=== PATIENT | female | born 2000 | race Caucasian/White ===

== ENCOUNTER 2021-05-08 10:41 | Inpatient (IN) | payer OTHER ==
[2021-05-08] MEDS ORDERED: NICOTINE 10 MG CARTRIDGE (INHALER) IH PRN (11:30)
[2021-05-08] MEDS ORDERED: IBUPROFEN 400 MG TABLET (FP) PO PRN (11:30)
[2021-05-08] MEDS ORDERED: diazePAM 5 MG TABLET PO PRN (11:30)
[2021-05-08] MEDS ORDERED: ONDANSETRON *ODT* 4 MG TABLET SL PRN (11:30)
[2021-05-08] MEDS ORDERED: MAG HYDROX/AL HYDROX/SIMETH 30 ML UNIT-DOSE CUP PO PRN (11:30)
[2021-05-08] MEDS ORDERED: MAGNESIUM HYDROX 2400MG/30ML ORAL SUSPENSION 30 ML CUP PO PRN (11:30)
[2021-05-08] MEDS ORDERED: ACETAMINOPHEN 325 MG TABLET (FP) PO PRN ×2 (11:30)
[2021-05-08] MEDS ORDERED: MAGNESIUM CITRATE 300 ML BOTTLE PO PRN (11:30)
[2021-05-08] MEDS ORDERED: MENTHOL/PHENOL 1 EACH UD MM PRN (11:30)
[2021-05-08] MEDS ORDERED: BUPRENORPHINE HCL 150 MCG, BUPRENORPHINE HCL 75 MCG BC ONE (11:30)
[2021-05-08] MEDS ORDERED: BISMUTH SUBSALICYLATE 524 MG/30 ML PO PRN (11:30)
[2021-05-08 11:51] VITALS: BMI 24.2
[2021-05-08] MEDS ORDERED: BUPRENORPHINE HCL 150 MCG FILM BC ONE (11:55)
[2021-05-08] MEDS ORDERED: BUPRENORPHINE HCL 75 MCG FILM BC ONE (11:55)
[2021-05-08] MEDS: diazePAM 5 MG TABLET PO SCH ×3 (12:00→22:20)
[2021-05-08] MEDS ORDERED: cloNIDine HCL 0.1 MG TABLET PO ONE (12:45)
[2021-05-08] MEDS: PRENATAL VITAMINS W/ FOLIC ACID TABLET (FP) PO SCH (12:59)
[2021-05-08] MEDS: hydrOXYzine PAMOATE 25 MG CAPSULE (FP) PO SCH ×3 (13:01→22:18)
[2021-05-08] MEDS: METHOCARBAMOL 500 MG TABLET PO PRN (13:01)
[2021-05-08] MEDS: NICOTINE 7 MG/24 HOURS TOPICAL PATCH TD SCH (13:08)
[2021-05-08 15:20] LABS: HEMATOCRIT 36.9 % (32.4-45.2); HEMOGLOBIN 12.5 GM/dL (10.7-15.3); MCH 28.2 pg (25.7-33.7); MCHC 33.9 g/dl (32.0-36.0); MEAN CELL VOLUME 83.3 fl (80-96); MEAN PLT VOLUME 8.8 fl (7.5-11.1); PLATELET COUNT 318 10^3/uL (134-434); RBC 4.43 M/mm3 (3.60-5.2); RDW 13.8 % (11.6-15.6); WHITE BLOOD COUNT 6.5 K/mm3 (4.0-10.0)
[2021-05-08] MEDS ORDERED: cloNIDine HCL 0.1 MG TABLET PO PRN (15:30)
[2021-05-08 15:31] LABS: CALCIUM 9.6 mg/dL (8.5-10.1)
[2021-05-08 15:33] LABS: ALBUMIN 3.9 g/dl (3.4-5.0); BLOOD UREA NITROGEN 17.5 mg/dL (7-18)
[2021-05-08 15:36] LABS: BILIRUBIN,TOTAL 0.8 mg/dL (0.2-1); TOT PROT 7.5 g/dl (6.4-8.2)
[2021-05-08 15:40] LABS: CREATININE 0.6 mg/dL (0.55-1.3)
[2021-05-08] MEDS: THIAMINE HCL 100 MG TABLET (FP) PO SCH (22:18)
[2021-05-08] MEDS: MELATONIN 5 MG TABLETS PO SCH (22:19)
[2021-05-08] MEDS: FLUTICASONE PROP 0.05% 16 GM NASAL SPRAY NS SCH (23:35)
[2021-05-09] MEDS ORDERED: BUPRENORPHINE HCL 75 MCG FILM BC ONE ×2 (04:07→17:19)
[2021-05-09] MEDS ORDERED: BUPRENORPHINE HCL 150 MCG FILM BC ONE ×2 (04:07→17:18)
[2021-05-09] MEDS: diazePAM 5 MG TABLET PO SCH ×4 (06:02→22:11)
[2021-05-09] MEDS: BUPRENORPHINE HCL 150 MCG, BUPRENORPHINE HCL 75 MCG BC SCH ×2 (06:03→18:13)
[2021-05-09] MEDS: hydrOXYzine PAMOATE 25 MG CAPSULE (FP) PO SCH ×5 (06:03→22:11)
[2021-05-09] MEDS: PRENATAL VITAMINS W/ FOLIC ACID TABLET (FP) PO SCH (10:24)
[2021-05-09] MEDS: METHOCARBAMOL 500 MG TABLET PO PRN (10:25)
[2021-05-09] MEDS: NICOTINE 7 MG/24 HOURS TOPICAL PATCH TD SCH (10:26)
[2021-05-09] MEDS: OXYMETAZOLINE 0.05% NASAL SOLUTION 15 ML BOTTLE NS PRN (12:20)
[2021-05-09] MEDS: FLUTICASONE PROP 0.05% 16 GM NASAL SPRAY NS SCH (12:42)
[2021-05-09] MEDS ORDERED: QUEtiapine FUMARATE 50 MG TABLET PO SCH (22:00)
[2021-05-09] MEDS: MELATONIN 5 MG TABLETS PO SCH (22:11)
[2021-05-09] MEDS: THIAMINE HCL 100 MG TABLET (FP) PO SCH (23:08)
[2021-05-10] MEDS: hydrOXYzine PAMOATE 25 MG CAPSULE (FP) PO SCH ×4 (06:14→18:01)
[2021-05-10] MEDS: diazePAM 5 MG TABLET PO SCH ×2 (06:16→13:59)
[2021-05-10] MEDS: BUPRENORPHINE HCL 450 MCG FILM BC SCH ×2 (06:16→18:01)
[2021-05-10] MEDS: OXYMETAZOLINE 0.05% NASAL SOLUTION 15 ML BOTTLE NS PRN ×2 (08:49→18:04)
[2021-05-10] MEDS: PRENATAL VITAMINS W/ FOLIC ACID TABLET (FP) PO SCH (10:50)
[2021-05-10] MEDS: METHOCARBAMOL 500 MG TABLET PO PRN (10:50)
[2021-05-10] MEDS: diazePAM 5 MG TABLET PO PRN ×2 (10:51→18:01)
[2021-05-10] MEDS: NICOTINE 7 MG/24 HOURS TOPICAL PATCH TD SCH (10:51)
[2021-05-10 18:28] VITALS: BP 101/61; PULSE 104; TEMP 97.7
[2021-05-11] MEDS ORDERED: diazePAM 5 MG TABLET PO SCH (06:00)
[2021-05-11] MEDS ORDERED: BUPRENORPHINE/NALOXONE 4 MG/1 MG FILM PACKET SL SCH (06:00)
[2021-05-12] MEDS ORDERED: BUPRENORPHINE/NALOXONE 8 MG/2 MG FILM PACKET SL ONE (06:00)
[2021-05-12] MEDS ORDERED: diazePAM 5 MG TABLET PO ONE (06:00)
== END 2021-05-10 17:05 | disposition left against medical advice (07) | DRG 770 ==
LOC: YASAS 10:41 → Y6N 12:07
PROVIDERS: ADMIT Allergy & Immunology; ATTEND Allergy & Immunology
PROC: HZ2ZZZZ Detoxification Services for Substance Abuse Treatment (ICD-10-PCS; principal; 2021-05-08)
DX: F13.230 Sedative, hypnotic or anxiolytic dependence with withdrawal, uncomplicated (principal); F11.20 Opioid dependence, uncomplicated; F17.210 Nicotine dependence, cigarettes, uncomplicated; F19.24 Other psychoactive substance dependence with psychoactive substance-induced mood disorder; F41.8 Other specified anxiety disorders; F32.A Depression, unspecified; G47.00 Insomnia, unspecified; Z86.59 Personal history of other mental and behavioral disorders; Z91.410 Personal history of adult physical and sexual abuse
CPT/HCPCS: 36415; 80053; 85027; 86780; C9803; J0735; U0003; U0005

== ENCOUNTER 2021-06-07 15:14 | Inpatient (IN) | payer OTHER ==
[2021-06-07] MEDS ORDERED: LOPERAMIDE HCL 2 MG CAPSULE PO PRN (16:46)
[2021-06-07] MEDS ORDERED: ONDANSETRON *ODT* 4 MG TABLET SL PRN (16:46)
[2021-06-07] MEDS ORDERED: ACETAMINOPHEN 325 MG TABLET (FP) PO PRN ×2 (16:46)
[2021-06-07] MEDS ORDERED: MENTHOL/PHENOL 1 EACH UD MM PRN (16:46)
[2021-06-07] MEDS ORDERED: BISMUTH SUBSALICYLATE 524 MG/30 ML PO PRN (16:46)
[2021-06-07] MEDS ORDERED: MAGNESIUM CITRATE 300 ML BOTTLE PO PRN (16:46)
[2021-06-07] MEDS ORDERED: MAG HYDROX/AL HYDROX/SIMETH 30 ML UNIT-DOSE CUP PO PRN (16:46)
[2021-06-07] MEDS ORDERED: MAGNESIUM HYDROX 2400MG/30ML ORAL SUSPENSION 30 ML CUP PO PRN (16:46)
[2021-06-07] MEDS ORDERED: IBUPROFEN 400 MG TABLET (FP) PO PRN (16:46)
[2021-06-07 18:06] VITALS: BMI 22.2
[2021-06-08] MEDS: hydrOXYzine PAMOATE 25 MG CAPSULE (FP) PO SCH ×7 (00:33→22:19)
[2021-06-08] MEDS: MELATONIN 5 MG TABLETS PO SCH ×2 (00:34→22:19)
[2021-06-08] MEDS: THIAMINE HCL 100 MG TABLET (FP) PO SCH ×2 (00:34→22:19)
[2021-06-08] MEDS ORDERED: clonazePAM 0.5 MG ODT TABLETS SL PRN (10:11)
[2021-06-08] MEDS ORDERED: methaDONE HCL 10 MG TABLET (FOR DETOX USE ONLY) PO ONE (10:11)
[2021-06-08] MEDS ORDERED: cloNIDine HCL 0.1 MG TABLET PO PRN (10:11)
[2021-06-08] MEDS: METHOCARBAMOL 500 MG TABLET PO PRN (10:29)
[2021-06-08] MEDS: PRENATAL VITAMINS W/ FOLIC ACID TABLET (FP) PO SCH (10:29)
[2021-06-08 11:11] LABS: ALBUMIN 3.8 g/dl (3.4-5.0)
[2021-06-08 11:12] LABS: BLOOD UREA NITROGEN 9.8 mg/dL (7-18)
[2021-06-08 11:15] LABS: CREATININE 0.7 mg/dL (0.55-1.3)
[2021-06-08 11:16] LABS: BILIRUBIN,TOTAL 1.1 mg/dL (0.2-1); TOT PROT 7.4 g/dl (6.4-8.2)
[2021-06-08 11:27] LABS: HEMATOCRIT 38.2 % (32.4-45.2); HEMOGLOBIN 13.1 GM/dL (10.7-15.3); MCH 28.9 pg (25.7-33.7); MCHC 34.2 g/dl (32.0-36.0); MEAN CELL VOLUME 84.4 fl (80-96); MEAN PLT VOLUME 8.7 fl (7.5-11.1); PLATELET COUNT 320 10^3/uL (134-434); RBC 4.53 M/mm3 (3.60-5.2)
[2021-06-08] MEDS: OXYMETAZOLINE HCL NS SCH (11:56)
[2021-06-08] MEDS: QUEtiapine FUMARATE 50 MG TABLET PO SCH (22:19)
[2021-06-09] MEDS: OXYMETAZOLINE 0.05% NASAL SOLUTION 15 ML BOTTLE NS PRN ×2 (06:57→22:12)
[2021-06-09] MEDS: hydrOXYzine PAMOATE 25 MG CAPSULE (FP) PO SCH ×5 (07:48→22:13)
[2021-06-09] MEDS ORDERED: methaDONE HCL 10 MG TABLET (FOR DETOX USE ONLY) ONE (09:29)
[2021-06-09] MEDS: PRENATAL VITAMINS W/ FOLIC ACID TABLET (FP) PO SCH (10:09)
[2021-06-09] MEDS: NICOTINE 10 MG CARTRIDGE (INHALER) IH PRN ×4 (10:39→22:16)
[2021-06-09 13:07] LABS: SARS-CoV-2 NAA Not Detected (Not Detected)
[2021-06-09] MEDS: QUEtiapine FUMARATE 50 MG TABLET PO SCH (22:13)
[2021-06-09] MEDS: THIAMINE HCL 100 MG TABLET (FP) PO SCH (22:13)
[2021-06-09] MEDS: MELATONIN 5 MG TABLETS PO SCH (22:13)
[2021-06-09] MEDS: METHOCARBAMOL 500 MG TABLET PO PRN (22:15)
[2021-06-10] MEDS: hydrOXYzine PAMOATE 25 MG CAPSULE (FP) PO SCH ×3 (06:59→15:17)
[2021-06-10] MEDS ORDERED: methaDONE HCL 10 MG TABLET (FOR DETOX USE ONLY) PO ONE (10:00)
[2021-06-10] MEDS: PRENATAL VITAMINS W/ FOLIC ACID TABLET (FP) PO SCH (10:09)
[2021-06-10] MEDS: NICOTINE 10 MG CARTRIDGE (INHALER) IH PRN ×3 (10:12→22:39)
[2021-06-10] MEDS: OXYMETAZOLINE HCL NS SCH (12:41)
[2021-06-10] MEDS: OXYMETAZOLINE 0.05% NASAL SOLUTION 15 ML BOTTLE NS PRN (19:26)
[2021-06-10] MEDS: THIAMINE HCL 100 MG TABLET (FP) PO SCH (22:20)
[2021-06-10] MEDS: QUEtiapine FUMARATE 50 MG TABLET PO SCH (22:20)
[2021-06-10] MEDS: MELATONIN 5 MG TABLETS PO SCH (22:20)
[2021-06-10] MEDS: hydrOXYzine PAMOATE 25 MG CAPSULE (FP) PO PRN (22:21)
[2021-06-11] MEDS ORDERED: methaDONE HCL 10 MG TABLET (FOR DETOX USE ONLY) ONE (09:24)
[2021-06-11] MEDS: PRENATAL VITAMINS W/ FOLIC ACID TABLET (FP) PO SCH (10:15)
[2021-06-11] MEDS: NICOTINE 10 MG CARTRIDGE (INHALER) IH PRN ×3 (10:17→22:16)
[2021-06-11] MEDS: OXYMETAZOLINE 0.05% NASAL SOLUTION 15 ML BOTTLE NS PRN ×2 (10:17→22:16)
[2021-06-11] MEDS: METHOCARBAMOL 500 MG TABLET PO PRN ×2 (10:19→22:14)
[2021-06-11] MEDS: diazePAM 5 MG TABLET PO PRN ×3 (11:17→22:14)
[2021-06-11] MEDS: hydrOXYzine PAMOATE 25 MG CAPSULE (FP) PO PRN (14:05)
[2021-06-11] MEDS: NICOTINE POLACRILEX 2 MG GUM BUC PRN (15:28)
[2021-06-11] MEDS: MELATONIN 5 MG TABLETS PO SCH (22:13)
[2021-06-11] MEDS: THIAMINE HCL 100 MG TABLET (FP) PO SCH (22:13)
[2021-06-11] MEDS: QUEtiapine FUMARATE 50 MG TABLET PO SCH (22:14)
[2021-06-12] MEDS: hydrOXYzine PAMOATE 25 MG CAPSULE (FP) PO PRN (06:19)
[2021-06-12] MEDS: NICOTINE 10 MG CARTRIDGE (INHALER) IH PRN ×3 (06:21→22:06)
[2021-06-12] MEDS: diazePAM 5 MG TABLET PO PRN ×5 (06:21→23:30)
[2021-06-12] MEDS: METHOCARBAMOL 500 MG TABLET PO PRN ×3 (06:50→22:10)
[2021-06-12] MEDS: OXYMETAZOLINE 0.05% NASAL SOLUTION 15 ML BOTTLE NS PRN ×3 (06:53→22:05)
[2021-06-12] MEDS: NICOTINE POLACRILEX 2 MG GUM BUC PRN ×4 (09:33→20:50)
[2021-06-12] MEDS ORDERED: methaDONE HCL 10 MG TABLET (FOR DETOX USE ONLY) PO ONE (10:00)
[2021-06-12] MEDS: PRENATAL VITAMINS W/ FOLIC ACID TABLET (FP) PO SCH (10:09)
[2021-06-12] MEDS: metroNIDAZOLE 250 MG TABLET PO SCH (22:06)
[2021-06-12] MEDS: MELATONIN 5 MG TABLETS PO SCH (22:06)
[2021-06-12] MEDS: THIAMINE HCL 100 MG TABLET (FP) PO SCH (22:07)
[2021-06-12] MEDS: QUEtiapine FUMARATE 50 MG TABLET PO SCH (22:07)
[2021-06-13] MEDS: diazePAM 5 MG TABLET PO PRN (06:25)
[2021-06-13] MEDS: NICOTINE POLACRILEX 2 MG GUM BUC PRN (06:27)
[2021-06-13] MEDS: METHOCARBAMOL 500 MG TABLET PO PRN (06:27)
[2021-06-13] MEDS: NICOTINE 10 MG CARTRIDGE (INHALER) IH PRN (06:28)
[2021-06-13 06:35] VITALS: BP 88/62; PULSE 46; TEMP 97.1
[2021-06-13] MEDS: metroNIDAZOLE 250 MG TABLET PO SCH (08:55)
== END 2021-06-13 08:58 | disposition home or self-care (01) | DRG 773 ==
LOC: YASAS 15:14 → Y3N 06-08 01:13
PROVIDERS: ADMIT Allergy & Immunology; ATTEND Allergy & Immunology
PROC: HZ2ZZZZ Detoxification Services for Substance Abuse Treatment (ICD-10-PCS; principal; 2021-06-08)
DX: F11.23 Opioid dependence with withdrawal (principal); F13.230 Sedative, hypnotic or anxiolytic dependence with withdrawal, uncomplicated; F17.210 Nicotine dependence, cigarettes, uncomplicated; F19.24 Other psychoactive substance dependence with psychoactive substance-induced mood disorder; G47.00 Insomnia, unspecified; Z91.410 Personal history of adult physical and sexual abuse; Z56.0 Unemployment, unspecified
CPT/HCPCS: 36415; 80053; 81025; 85027; 86780; C9803; U0003; U0005